=== PATIENT | female | born 1995 | race Caucasian/White ===

== ENCOUNTER 2019-11-28 16:47 | Emergency (ER) | payer BC ==
[~2019-11-28] VITALS: Ht 170.2 cm; Wt 75.0 kg
[2019-11-28] MEDS ORDERED: MORPHINE SULFATE 4 MG/ML, 1ML ONE ×2 (17:14→18:18)
[2019-11-28] MEDS ORDERED: ONDANSETRON 2MG/ML, 2ML ONE (17:14)
[2019-11-28] MEDS ORDERED: ONDANSETRON 2MG/ML, 2ML IVPush ONE (17:30)
[2019-11-28] MEDS ORDERED: SODIUM CHLORIDE FLUSH 10ML SYR IVF ONE (17:30)
[2019-11-28] MEDS ORDERED: MORPHINE SULFATE 4 MG/ML, 1ML IVPush PRN (17:30)
--- NOTE | 2019-11-28 17:42 | NUR ---
PT REPORT FROM BREAK RN: EMMA
[2019-11-28] MEDS ORDERED: PROPOFOL 10 MG/ML, 20ML IV ONE (18:00)
[2019-11-28] MEDS ORDERED: PROPOFOL 10 MG/ML, 20ML ONE ×2 (18:18→18:39)
--- NOTE | 2019-11-28 18:30 | NUR ---
PROCEDURAL SEDATION CHECKLIST INITIATED. SEE FORM FOR ADDITIONAL PROCEDURAL INFORMATION.
--- NOTE | 2019-11-28 18:33 | NUR ---
RT ANKLE FX/DISLOCATION REDUCTION CONSENT SIGNED BY PT AND DR QUEEN.
--- NOTE | 2019-11-28 18:34 | NUR ---
PROPAFOL 60MG IV ADMINISTERED PER DR QUEEN
--- NOTE | 2019-11-28 18:50 | NUR ---
ANKLE SPLINT BEING APPLIED. PT A&OX4, RESP EVEN & UNLABORED, SPEECH CLEAR. ABLE TO WIGGLE TOES.
--- NOTE | 2019-11-28 19:02 | NUR ---
Marisa duarte in [facility] [place] - 11/28/19 at 1903 by PASCUAL e
--- NOTE | 2019-11-28 19:03 | NUR ---
REPEAT ANKLE XR DONE
--- NOTE | 2019-11-28 19:15 | NUR ---
PT C/O ANKLE PAIN (04/11). INFORMED PT OF ORDER FOR MORPHINE. PT STATES SHE HAS A ROOMMATE, BUT THEY DON'T GET ALONG. STATES DAD LIVES IN [facility] ([place], CELL #[phone]). INFORMED PT THAT DR QUEEN IS AWAITING THE REPEAT RADIOLOGY REPORT AND CONSULT FROM [facility] TO DETERMINE PENDING SURGERY DATE.
--- NOTE | 2019-11-28 19:40 | NUR ---
PER DR QUEEN, PT TO BE DC'D AND IS CALLING FOR TRANSPORT HOME.
[2019-11-28] MEDS ORDERED: OXYcodone/APAP 5/325MG TABLET ONE (19:45)
--- NOTE | 2019-11-28 19:50 | NUR ---
PERCOCET GIVEN PER EMAR. PT STATES HER DAD WILL COME TO TAKE HER HOME. SIDE RAILS UP X2, CALL LIGHT W/IN REACH.
[2019-11-28] MEDS ORDERED: PROPOFOL 10 MG/ML, 20ML IVPush ONE (20:00)
[2019-11-28] MEDS ORDERED: OXYcodone/APAP 5/325MG TABLET PO ONE (20:00)
[2019-11-28 21:22] VITALS: BP 129/75
--- NOTE | 2019-11-28 21:23 | NUR ---
PT TAKEN TO VEHICLE PER W/C.
== END 2019-11-28 21:26 | disposition home or self-care (01) ==
LOC: ED 17:04
DX: S82.851A Displaced trimalleolar fracture of right lower leg, initial encounter for closed fracture (principal); X50.1XXA Overexertion from prolonged static or awkward postures, initial encounter; Y93.39 Activity, other involving climbing, rappelling and jumping off; Y92.89 Other specified places as the place of occurrence of the external cause; Y99.8 Other external cause status
CPT/HCPCS: 27752; 73610; 96374; 96375; 99151; 99285; J2270; J2405; J2704